=== PATIENT | male | born 1975 | race Two or more races ===

== ENCOUNTER 2016-07-31 09:33 | Emergency (ER) | payer BC, OTHER ==
[~2016-07-31] VITALS: Ht 177.8 cm; Wt 124.7 kg
[2016-07-31] MEDS ORDERED: ASPirin 81 mg TAB PO ONE (09:45)
[2016-07-31] MEDS ORDERED: SODIUM CHLORIDE 0.9% 1,000 ML IV ONE (09:45)
[2016-07-31] MEDS ORDERED: LORazepam 2MG/ML-1ML VIAL IV ONE (10:30)
[2016-07-31 10:40] LABS: Basophils # (auto) 0 uL; Basophils % (auto) 0.6 % (0.0-2.0); DEFINITIVE VIEW TRANSMISSION; Eosinophils # (auto) 0 uL; Eosinophils % (auto) 0.6 % (0.0-7.0); Hematocrit 51.3 % (41.0-53.0); Hemoglobin 17.1 g/dL (13.5-17.5); Lymphocytes # (auto) 2.6 uL; Lymphocytes % (auto) 32.3 % (10.0-50.0); Mean Corpuscular Hemoglobin 27.3 pg (28.0-32.0); Mean Corpuscular Hgb Conc. 33.3 g/dL (32.0-36.0); Mean Corpuscular Volume 81.7 fL (80.0-100.0); Mean Platelet Volume 8.3 fL (7.4-10.4); Monocytes # (auto) 0.4 uL; Monocytes % (auto) 5.5 % (0.0-12.0); Neutrophils # (auto) 4.9 uL; Platelet Count (auto) 309 10^3/uL (140-450); Red Cell Distribution Width 13.7 % (11.6-16.0)
[2016-07-31 10:44] LABS: Partial Thromboplastin Time 26.1 sec (22.64-33.71); Prothrombin Time 12.1 sec (9.37-12.3)
[2016-07-31 10:50] LABS: Albumin 4.2 g/dL (3.4-5.0); Anion Gap 10 (5-15); Aspartate Aminotransferase 19 U/L (15-37); BUN/Creatinine Ratio 9.7; Blood Urea Nitrogen 11 mg/dL (7-18); Calcium 9.1 mg/dL (8.5-10.1); Carbon Dioxide 26 mmol/L (21-32); Chloride 99 mmol/L (98-107); GFR African American 92 mL/min; GFR Non-African American 76 mL/min; Glucose 95 mg/dL (74-106); Potassium 3.5 mmol/L (3.5-5.1); Sodium 135 mmol/L (136-145)
[2016-07-31 10:55] LABS: Alkaline Phosphatase 46 U/L (45-117); Bilirubin, Total 1.1 mg/dL (0.2-1.0); Total Protein 8.1 g/dL (6.4-8.2)
[2016-07-31 11:00] LABS: INR 1.17 (0.9-1.15)
[2016-07-31 11:54] VITALS: BP 129/63
[2016-07-31 11:54] LABS: B-Type Natriuretic Peptide 13.31 pg/mL (0-100)
== END 2016-07-31 11:55 | disposition home or self-care (01) ==
LOC: ER 09:33
DX: R07.89 Other chest pain (principal); F41.9 Anxiety disorder, unspecified
CPT/HCPCS: 36415; 71010; 80053; 83880; 84484; 85025; 85610; 85730; 93005; 96361; 96374; 99285; J2060; J7030

== ENCOUNTER 2018-01-26 16:30 | Emergency (ER) | payer BC ==
[~2018-01-26] VITALS: Ht 177.8 cm; Wt 127.0 kg
[2018-01-26 17:30] LABS: Basophils # (auto) 0.1 uL; Basophils % (auto) 0.8 % (0.0-2.0); Eosinophils # (auto) 0.1 uL; Eosinophils % (auto) 1.5 % (0.0-7.0); Hematocrit 49.9 % (41.0-53.0); Hemoglobin 16.7 g/dL (13.5-17.5); Lymphocytes # (auto) 3.5 uL; Lymphocytes % (auto) 38.2 % (10.0-50.0); Mean Corpuscular Hemoglobin 28.1 pg (28.0-32.0); Mean Corpuscular Hgb Conc. 33.5 g/dL (32.0-36.0); Monocytes # (auto) 0.5 uL; Neutrophils # (auto) 4.8 uL; Neutrophils % (auto) 53.5 % (37.0-80.0); Nucleated Red Blood Cells % 0.2 %; Platelet Count (auto) 310 10^3/uL (140-450); Red Blood Cells 5.94 10^6/uL (4.5-5.90); Red Cell Distribution Width 14.2 % (11.8-14.3)
[2018-01-26 18:15] LABS: Alanine Aminotransferase 49 U/L (16-61); Albumin 4.1 g/dL (3.4-5.0); Alkaline Phosphatase 50 U/L (45-117); Anion Gap 6 (5-15); Aspartate Aminotransferase 25 U/L (15-37); BUN/Creatinine Ratio 10.9; Bilirubin, Total 0.6 mg/dL (0.2-1.0); Blood Urea Nitrogen 14 mg/dL (7-18); Calcium 8.6 mg/dL (8.5-10.1); Carbon Dioxide 28 mmol/L (21-32); Chloride 100 mmol/L (98-107); GFR African American 78 mL/min; GFR Non-African American 65 mL/min; Glucose 83 mg/dL (74-106); Magnesium 2.7 mg/dL (1.6-2.6); Potassium 4.4 mmol/L (3.5-5.1); Sodium 134 mmol/L (136-145)
[2018-01-27 03:48] VITALS: BP 121/83
== END 2018-01-27 05:07 | disposition home or self-care (01) ==
LOC: ER 16:48
DX: R07.89 Other chest pain (principal); K29.70 Gastritis, unspecified, without bleeding; I10 Essential (primary) hypertension; Z90.49 Acquired absence of other specified parts of digestive tract
CPT/HCPCS: 36415; 71046; 80053; 83735; 84484; 85025; 99285; J7030

== ENCOUNTER 2023-01-28 07:35 | Emergency (ER) | payer BC ==
[~2023-01-28] VITALS: Ht 177.8 cm; Wt 127.3 kg
[2023-01-28 09:58] LABS: Eosinophils # (auto) 0.1 10 ^3/uL (0-0.8); Lymphocytes # (auto) 3.4 10 ^3/uL (0.4-5.4); Monocytes # (auto) 0.4 10 ^3/uL (0-1.3); Neutrophils # (auto) 4.3 10 ^3/uL (1.6-8.6); White Blood Cell 8.2 10^3/uL (4.4-10.8)
[2023-01-28 10:01] LABS: Basophils # (auto) 0 10 ^3/uL (0-0.2); Basophils % (auto) 0.5 % (0.0-2.0); Eosinophils % (auto) 1.5 % (0.0-7.0); Hematocrit 51.4 % (41.0-53.0); Hemoglobin 17.4 g/dL (13.5-17.5); Mean Corpuscular Hemoglobin 27.7 pg (28.0-32.0); Mean Corpuscular Hgb Conc. 33.9 g/dL (32.0-36.0); Mean Corpuscular Volume 81.7 fL (80.0-100.0); Monocytes % (auto) 5.1 % (0.0-12.0); Neutrophils % (auto) 51.9 % (37.0-80.0); Nucleated Red Blood Cells % 0.9 %; Red Blood Cells 6.29 10^6/uL (4.5-5.90); Red Cell Distribution Width 14.3 % (11.8-14.3)
[2023-01-28] MEDS ORDERED: IOHEXOL 350 MG/ML 100ML IJ ONE (10:20)
[2023-01-28] MEDS ORDERED: amLODIPine BESYLATE 5 MG TAB PO ONE (10:30)
[2023-01-28 10:31] LABS: Alanine Aminotransferase 36 U/L (7-40); Albumin 4.6 g/dL (3.2-4.8); Alkaline Phosphatase 54 U/L (46-116); Anion Gap 10.1 (5-15); Aspartate Aminotransferase 12 U/L (13-40); BUN/Creatinine Ratio 11.8 (10.0-20.0); Bilirubin, Total 0.9 mg/dL (0.2-1.0); Blood Urea Nitrogen 12 mg/dL (9-23); Calcium 9.8 mg/dL (8.5-10.1); Carbon Dioxide 24.9 mmol/L (20-30); Chloride 102 mmol/L (98-107); Glucose 125 mg/dL (74-106); Potassium 3.9 mmol/L (3.5-5.1); Sodium 137 mmol/L (136-145)
[2023-01-28 10:32] LABS: Total Protein 7.2 g/dL (5.7-8.2)
[2023-01-28 10:48] VITALS: BP 146/98; RESP 18; TEMP 98; O2SAT 95
[2023-01-28] MEDS ORDERED: NAPR-1334 PO (12:57)
[2023-01-28] MEDS ORDERED: COLC1TAB3 PO (12:57)
[2023-01-28] MEDS ORDERED: AML5T PO (12:57)
[2023-01-28 13:01] VITALS: PULSE 55
== END 2023-01-28 13:11 | disposition home or self-care (01) ==
LOC: ER 07:35
DX: I10 Essential (primary) hypertension (principal); R07.89 Other chest pain; M54.9 Dorsalgia, unspecified; R51.9 Headache, unspecified; Z90.49 Acquired absence of other specified parts of digestive tract
CPT/HCPCS: 36415; 70450; 71045; 71260; 74177; 80053; 84484; 85025; 93005; 99285; Q9967

== ENCOUNTER 2023-02-03 13:04 | Inpatient (IN) | payer BC ==
[~2023-02-03] VITALS: Ht 177.8 cm; Wt 131.7 kg
[~2023-02-03 13:04] MED LIST: AML5T PO; COLC1TAB3 PO; NAPR-1334 PO
[2023-02-03 13:44] LABS: Eosinophils # (auto) 0 10 ^3/uL (0-0.8); Eosinophils % (auto) 0.4 % (0.0-7.0); Lymphocytes # (auto) 2.6 10 ^3/uL (0.4-5.4); Monocytes # (auto) 0.4 10 ^3/uL (0-1.3); Neutrophils # (auto) 5.9 10 ^3/uL (1.6-8.6); Red Blood Cells 6.16 10^6/uL (4.5-5.90)
[2023-02-03 13:45] LABS: Basophils # (auto) 0 10 ^3/uL (0-0.2); Basophils % (auto) 0.5 % (0.0-2.0); Hematocrit 49.9 % (41.0-53.0); Hemoglobin 16.9 g/dL (13.5-17.5); Lymphocytes % (auto) 28.5 % (10.0-50.0); Mean Corpuscular Hemoglobin 27.4 pg (28.0-32.0); Mean Corpuscular Hgb Conc. 33.9 g/dL (32.0-36.0); Mean Corpuscular Volume 80.9 fL (80.0-100.0); Monocytes % (auto) 4.5 % (0.0-12.0); Neutrophils % (auto) 66.1 % (37.0-80.0); Nucleated Red Blood Cells % 0.3 %; Red Cell Distribution Width 14.1 % (11.8-14.3)
[2023-02-03] MEDS ORDERED: ASPirin 81 mg TAB PO ONE (13:45)
[2023-02-03] MEDS ORDERED: SODIUM CHLORIDE 0.9% 1,000 ML IV ONE (13:45)
[2023-02-03 14:11] LABS: Alanine Aminotransferase 47 U/L (7-40); Albumin 4.7 g/dL (3.2-4.8); Alkaline Phosphatase 49 U/L (46-116); Anion Gap 8.1 (5-15); Aspartate Aminotransferase 20 U/L (13-40); BUN/Creatinine Ratio 11.8 (10.0-20.0); Blood Urea Nitrogen 12 mg/dL (9-23); Calcium 9.7 mg/dL (8.5-10.1); Carbon Dioxide 24.9 mmol/L (20-30); Chloride 105 mmol/L (98-107); Glucose 93 mg/dL (74-106); Potassium 4.2 mmol/L (3.5-5.1); Sodium 138 mmol/L (136-145); Total Protein 7.2 g/dL (5.7-8.2)
[2023-02-03 14:39] LABS: Erythrocyte Sedimentation Rate 1 mm/hr (0-20)
[2023-02-03] MEDS ORDERED: KETOROLAC TROMETH 30 MG/ML 1ML VIAL IV ONE (15:30)
[2023-02-03] MEDS ORDERED: METOCLOPRAMIDE HCL 5MG/ml INJ 2ml VIAL IV ONE (15:30)
[2023-02-03] MEDS ORDERED: SPIRONOLACTONE 25 MG TAB PO ONE (15:30)
[2023-02-03] MEDS ORDERED: METOPROLOL TARTRATE 1MG/1ML-5ML VIAL IV ONE (15:30)
[2023-02-03] MEDS ORDERED: FUROSEMIDE 20 MG/2 ML VIAL IV ONE (15:30)
[2023-02-03] MEDS ORDERED: hydrALAZINE HCL 20 MG/ML VL IV PRN (16:00)
[2023-02-03] MEDS ORDERED: ONDANSETRON HCL 4 MG/2 ML VIAL IV PRN (16:00)
[2023-02-03] MEDS ORDERED: HYDROcodone-ACET 5/325MG TAB PO PRN (16:00)
[2023-02-03] MEDS ORDERED: DOCUSATE SOD 100 MG CAP PO PRN (16:00)
[2023-02-03] MEDS ORDERED: ACETAMINOPHEN 325 MG TAB PO PRN (16:00)
[2023-02-03] MEDS ORDERED: MORPHINE SULFATE INJ 2 MG/ml SYRG IV PRN ×2 (16:00→16:30)
[2023-02-03] MEDS ORDERED: NITROGLYCERIN 0.4 MG SL TAB SL PRN (16:30)
[2023-02-03 16:39] LABS: Free T3 3.55 pg/mL (2.3-4.2); Free T4 (Free Thyroxine) 1.4 ng/dL (0.89-1.76)
[2023-02-03 17:41] LABS: Triglycerides 149 mg/dL (< 150)
[2023-02-03 17:42] LABS: LDL Cholesterol 163 mg/dL (< 100)
[2023-02-03 17:43] LABS: Cholesterol 225 mg/dL (< 200); HDL Cholesterol 47 mg/dL (40-59)
[2023-02-03 18:27] LABS: COVID19 ANTIGEN SOFIA FIA NEGATIVE (NEGATIVE)
[2023-02-03 19:25] VITALS: PULSE 66; RESP 17; O2SAT 97
[2023-02-03 20:41] LABS: Urine WBC None Seen /hpf (0 - 3)
[2023-02-03 20:50] LABS: Urine Bacteria NONE SEEN /hpf (None Seen); Urine Blood Negative /uL (Negative); Urine Clarity Clear (Clear); Urine Color Colorless (Yellow); Urine Protein, UAD Negative (Negative); Urine Specific Gravity 1.006 (1.001-1.035); Urine Urobilinogen Normal (Negative); Urine pH 5.5 (5.0-8.0)
[2023-02-03] MEDS: SODIUM CHLOR 0.9% PF (SALINE LOCK) 10ML VIAL/SYR IV SCH (22:00)
[2023-02-03] MEDS: ATORVASTATIN 20 MG TAB PO SCH (23:05)
[2023-02-04] VITALS (7 sets, daily range): BP systolic 132–159; BP diastolic 80–103; PULSE 49–74; RESP 15–18; TEMP 97.8–98.3; O2SAT 95–98
[2023-02-04 05:56] LABS: Basophils # (auto) 0 10 ^3/uL (0-0.2); Basophils % (auto) 0.7 % (0.0-2.0); Eosinophils # (auto) 0.2 10 ^3/uL (0-0.8); Eosinophils % (auto) 2.4 % (0.0-7.0); Hematocrit 47.8 % (41.0-53.0); Hemoglobin 16.3 g/dL (13.5-17.5); Lymphocytes % (auto) 42.9 % (10.0-50.0); Mean Corpuscular Hemoglobin 27.8 pg (28.0-32.0); Mean Corpuscular Hgb Conc. 34.1 g/dL (32.0-36.0); Mean Corpuscular Volume 81.4 fL (80.0-100.0); Monocytes # (auto) 0.5 10 ^3/uL (0-1.3); Monocytes % (auto) 7.2 % (0.0-12.0); Neutrophils # (auto) 3.2 10 ^3/uL (1.6-8.6); Neutrophils % (auto) 46.8 % (37.0-80.0); Nucleated Red Blood Cells % 0.2 %; Red Blood Cells 5.87 10^6/uL (4.5-5.90); Red Cell Distribution Width 13.8 % (11.8-14.3); White Blood Cell 6.9 10^3/uL (4.4-10.8)
[2023-02-04] MEDS: SODIUM CHLOR 0.9% PF (SALINE LOCK) 10ML VIAL/SYR IV SCH ×3 (06:00→22:04)
[2023-02-04 06:37] LABS: Alanine Aminotransferase 42 U/L (7-40); Albumin 4.4 g/dL (3.2-4.8); Alkaline Phosphatase 43 U/L (46-116); Anion Gap 6.6 (5-15); Aspartate Aminotransferase 22 U/L (13-40); BUN/Creatinine Ratio 9.1 (10.0-20.0); Bilirubin, Total 1.2 mg/dL (0.2-1.0); Blood Urea Nitrogen 10 mg/dL (9-23); Calcium 9.2 mg/dL (8.5-10.1); Carbon Dioxide 26.4 mmol/L (20-30); Chloride 106 mmol/L (98-107); Glucose 96 mg/dL (74-106); Potassium 4.4 mmol/L (3.5-5.1); Sodium 139 mmol/L (136-145); Total Protein 6.9 g/dL (5.7-8.2)
[2023-02-04] MEDS: FUROSEMIDE 20 MG/2 ML VIAL IV SCH (08:40)
[2023-02-04] MEDS: amLODIPine BESYLATE 5 MG TAB PO SCH (08:41)
[2023-02-04] MEDS: ASPirin 81 mg TAB PO SCH (08:41)
[2023-02-04] MEDS: ATORVASTATIN 20 MG TAB PO SCH (22:04)
[2023-02-05 05:00] VITALS: BP 122/75; PULSE 60; RESP 18; TEMP 97.6; O2SAT 98
[2023-02-05] MEDS: SODIUM CHLOR 0.9% PF (SALINE LOCK) 10ML VIAL/SYR IV SCH ×2 (06:28→09:37)
[2023-02-05 08:00] VITALS: PULSE 116; PULSE 52
[2023-02-05 08:34] LABS: Hematocrit 55.4 % (41.0-53.0); Hemoglobin 18.5 g/dL (13.5-17.5); Lymphocytes # (auto) 3.3 10 ^3/uL (0.4-5.4); Lymphocytes % (auto) 43.4 % (10.0-50.0); Monocytes # (auto) 0.5 10 ^3/uL (0-1.3); Red Cell Distribution Width 14.3 % (11.8-14.3)
[2023-02-05 08:37] LABS: Basophils # (auto) 0.1 10 ^3/uL (0-0.2); Eosinophils # (auto) 0.2 10 ^3/uL (0-0.8); Eosinophils % (auto) 2.2 % (0.0-7.0); Mean Corpuscular Hemoglobin 27.2 pg (28.0-32.0); Mean Corpuscular Hgb Conc. 33.3 g/dL (32.0-36.0); Mean Corpuscular Volume 81.6 fL (80.0-100.0); Monocytes % (auto) 7.2 % (0.0-12.0); Neutrophils # (auto) 3.5 10 ^3/uL (1.6-8.6); Neutrophils % (auto) 46.2 % (37.0-80.0); Nucleated Red Blood Cells % 2.6 %; Red Blood Cells 6.79 10^6/uL (4.5-5.90); White Blood Cell 7.6 10^3/uL (4.4-10.8)
[2023-02-05 08:55] LABS: Anion Gap 7.4 (5-15); Carbon Dioxide 25.6 mmol/L (20-30); Chloride 104 mmol/L (98-107); Potassium 4.5 mmol/L (3.5-5.1); Sodium 137 mmol/L (136-145)
[2023-02-05 08:56] LABS: Calcium 9.7 mg/dL (8.5-10.1)
[2023-02-05 09:00] VITALS: BP 155/91; PULSE 55; RESP 18; TEMP 97.7; O2SAT 98
[2023-02-05 09:01] LABS: BUN/Creatinine Ratio 13.8 (10.0-20.0); Blood Urea Nitrogen 16 mg/dL (9-23); Glucose 105 mg/dL (74-106)
[2023-02-05] MEDS: FUROSEMIDE 20 MG/2 ML VIAL IV SCH (09:35)
[2023-02-05] MEDS: ASPirin 81 mg TAB PO SCH (09:36)
[2023-02-05] MEDS: amLODIPine BESYLATE 5 MG TAB PO SCH (09:36)
[2023-02-05] MEDS ORDERED: LISINOPRIL 10 MG TAB PO SCH (11:45)
[2023-02-05 12:49] LABS: Platelet Estimate Adequate
[2023-02-05 13:00] VITALS: BP 151/97; PULSE 77; RESP 20; TEMP 98.2; O2SAT 97
[2023-02-05] MEDS ORDERED: TRAM50TA2 PO (16:18)
[2023-02-05] MEDS ORDERED: LISI-713 PO (16:18)
[2023-02-05] MEDS ORDERED: METO25TA5 PO (16:18)
[2023-02-05 16:47] VITALS: BP 155/91; PULSE 77; TEMP 36.8
[2023-02-05 16:53] VITALS: BP 126/88; PULSE 91; RESP 20; TEMP 98; O2SAT 96
[2023-02-05] MEDS ORDERED: ATORVASTATIN 20 MG TAB PO SCH (22:00)
== END 2023-02-05 17:51 | disposition home or self-care (01) | DRG 291 ==
LOC: ER 13:04 → TELE 16:20 → TELE-WESTW 02-04 02:38
PROVIDERS: ADMIT Nurse Practitioner Family; ATTEND Nurse Practitioner Acute Care
DX: I11.0 Hypertensive heart disease with heart failure (principal); I50.31 Acute diastolic (congestive) heart failure; I24.9 Acute ischemic heart disease, unspecified; E66.01 Morbid (severe) obesity due to excess calories; G47.30 Sleep apnea, unspecified; Z20.822 Contact with and (suspected) exposure to COVID-19; R09.89 Other specified symptoms and signs involving the circulatory and respiratory systems; M48.8X6 Other specified spondylopathies, lumbar region; R94.6 Abnormal results of thyroid function studies; M54.50 Low back pain, unspecified; Z68.35 Body mass index [BMI] 35.0-35.9, adult; E78.5 Hyperlipidemia, unspecified; Z82.49 Family history of ischemic heart disease and other diseases of the circulatory system; Z83.3 Family history of diabetes mellitus; Z90.49 Acquired absence of other specified parts of digestive tract
CPT/HCPCS: 36415; 71046; 72131; 78452; 80048; 80053; 80061; 81001; 83036; 83735; 83880; 84439; 84443; 84481; 84484; 85025; 85379; 85652; 87081; 87426; 93005; 93017; 93306; G0378; J1885